=== PATIENT | male | born 1955 | race Caucasian/White ===

== ENCOUNTER → 2021-04-11 | Outpatient (CLI) | payer OTHER ==
[~2021-04-11] MED LIST: ASPI81TA45 PO; CHOL10003 PO; DULO30CA2 PO; METO25TA35 PO; MULT-449 PO; OMEP20TA62 PO; PRAZ1CAP2 PO; SIMV20TA19 PO
[2021-04-11 09:51] LABS: BASOPHILS % (AUTO) 1 % (0-1); EOSINOPHILS % (AUTO) 5 % (1-7); LYMPHOCYTES % (AUTO) 27 % (22-44); MEAN CORPUSCULAR HEMOGLOBIN 32.3 pg (27.5-34.5); MEAN CORPUSCULAR HGB CONC 33.2 g/dL (33.2-36.2); MEAN PLATELET VOLUME 7.3 fL (7.4-10.4); MONOCYTES % (AUTO) 11 % (2-9); NEUTROPHILS % (AUTO) 57 % (42-75); PLATELET COUNT 225 x10^3/uL (130-400); RED BLOOD COUNT 4.72 x10^6/uL (4.38-5.82); RED CELL DISTRIBUTION WIDTH 14.1 % (9.4-14.8)
[2021-04-11 10:04] LABS: ANION GAP 4 mmol/L (5-15); CHLORIDE 105 mmol/L (98-107); INTERNATIONAL NORMALIZED RATIO 1.06 (0.93-1.1); PROTHROMBIN TIME 11.3 Seconds (9.6-11.5)
[2021-04-11 10:07] LABS: ALANINE AMINOTRANSFERASE 31 U/L (12-78); ALKALINE PHOSPHATASE 77 U/L (45-117); BILIRUBIN,TOTAL 0.6 mg/dL (0.2-1.0); CREATININE 1.03 mg/dL (0.7-1.3); TOTAL PROTEIN 7.7 g/dL (6.4-8.2)
[2021-04-11 10:20] LABS: MD NO
[2021-04-11 10:26] LABS: MICROSCOPIC NOT IND
== END | disposition home or self-care (01) ==
LOC: STAR 08:41
PROVIDERS: ATTEND Neurological Surgery
DX: Z01.810 Encounter for preprocedural cardiovascular examination (principal); Z01.811 Encounter for preprocedural respiratory examination; Z01.812 Encounter for preprocedural laboratory examination; M47.896 Other spondylosis, lumbar region; M48.061 Spinal stenosis, lumbar region without neurogenic claudication; R94.31 Abnormal electrocardiogram [ECG] [EKG]; R79.1 Abnormal coagulation profile; R82.90 Unspecified abnormal findings in urine; Z20.822 Contact with and (suspected) exposure to COVID-19
CPT/HCPCS: 36415; 71046; 80053; 81003; 85025; 85610; 85730; 93005; U0003; U0005

== ENCOUNTER 2021-04-17 06:30 | Inpatient (IN) | payer OTHER ==
[~2021-04-17] VITALS: Ht 172.7 cm; Wt 85.0 kg
[~2021-04-17 06:30] MED LIST changes: +BACITRACIN 50,000 UNIT ONE; +BUPIVACAINE/PF 0.5% ONE; +VANCOMYCIN 1,000 MG ONE
[2021-04-17 07:07] VITALS: BP 117/75
[2021-04-17] MEDS ORDERED: FENTANYL PF 250 MCG/5ML ONE (07:13)
[2021-04-17] MEDS ORDERED: MIDAZOLAM 1 MG/ML, 2ML ONE (07:13)
[2021-04-17] MEDS ORDERED: PROPOFOL 10 MG/ML, 20ML ONE (07:18)
[2021-04-17] MEDS ORDERED: ROCURONIUM 10MG/ML,5ML ONE (07:18)
[2021-04-17] MEDS ORDERED: GLYCOPYRROLATE 0.2MG/1ML, 5ML ONE (07:18)
[2021-04-17] MEDS ORDERED: NEOSTIGMINE 1 MG/ML, 10ML ONE (07:18)
[2021-04-17] MEDS ORDERED: CEFAZOLIN 1,000 MG ONE (07:18)
[2021-04-17] MEDS ORDERED: CHLORHEXIDINE 15 ML UDC PO ONE (07:30)
[2021-04-17] MEDS ORDERED: LACTATED RINGERS 1,000 ML IV SCH (07:30)
[2021-04-17] MEDS ORDERED: hydrALAzine 20 MG/ML, 1ML IV PRN (09:00)
[2021-04-17] MEDS ORDERED: FENTANYL PF 100 MCG/2ML IV PRN (09:00)
[2021-04-17] MEDS ORDERED: morphine SULFATE 10 MG/ML, 1ML IVPush PRN (09:00)
[2021-04-17] MEDS ORDERED: MEPERIDINE/PF 25MG/0.5ML IVPush PRN (09:00)
[2021-04-17] MEDS ORDERED: ONDANSETRON 2MG/ML, 2ML IVPush PRN (09:00)
[2021-04-17] MEDS ORDERED: OXYcodone 5 MG/5 ML ORAL.SOL UDC PO PRN (09:00)
[2021-04-17] MEDS ORDERED: LABETALOL 5MG/ML, 20ML IV PRN (09:00)
[2021-04-17] MEDS ORDERED: ACETAMINOPHEN 325 MG TABLET PO PRN (09:00)
[2021-04-17] MEDS ORDERED: PHENYLEPHRINE 10 MG/ML ONE (09:11)
[2021-04-17] MEDS ORDERED: FENTANYL PF 100 MCG/2ML ONE ×2 (11:06→11:36)
[2021-04-17] MEDS ORDERED: VANCOMYCIN 1,000 MG ONE (11:57)
[2021-04-17] MEDS ORDERED: NALOXONE 0.4 MG/ML, 1ML ONE (12:17)
[2021-04-17] MEDS ORDERED: PHARMACY MAY ADJ FOR RENAL FX MC PRN (12:30)
[2021-04-17] MEDS ORDERED: LABETALOL 5MG/ML, 20ML IVPush PRN (12:30)
[2021-04-17] MEDS ORDERED: DIPHENHYDRAMINE 50 MG/ML, 1ML IM PRN (12:30)
[2021-04-17] MEDS ORDERED: PROMETHAZINE 25 MG/ML, 1ML IM PRN (12:30)
[2021-04-17] MEDS ORDERED: DIPHENHYDRAMINE 50 MG CAPSULE PO PRN (12:30)
[2021-04-17] MEDS ORDERED: DIPHENHYDRAMINE 50 MG/ML, 1ML IVPush PRN (12:30)
[2021-04-17] MEDS: D5%-0.9% NACL+KCL 20MEQ 1,000 ML IV SCH (12:30)
[2021-04-17] MEDS ORDERED: MAGNESIUM HYDROXIDE 8%, 30ML UDC PO PRN (12:30)
[2021-04-17] MEDS ORDERED: OXYcodone IR 5MG TABLET PO PRN (12:30)
[2021-04-17] MEDS ORDERED: METHOCARBAMOL 750 MG TABLET PO PRN (12:30)
[2021-04-17] MEDS ORDERED: SENNA/DOCUSATE TABLET PO PRN (12:30)
[2021-04-17] MEDS ORDERED: BISACODYL 10 MG SUPP PR PRN (12:30)
[2021-04-17] MEDS ORDERED: HYDROmorphone 1 MG/ML, 1ML INJ ONE (12:33)
[2021-04-17] MEDS: HYDROmorphone 1 MG/ML, 1ML INJ IVPush PRN ×3 (12:35→13:39)
[2021-04-17] MEDS ORDERED: HYDROcodone/APAP 7.5-325MG/15ML UDC ONE (13:03)
[2021-04-17] MEDS ORDERED: HYDROcodone/APAP 7.5-325MG/15ML UDC PO PRN (13:30)
[2021-04-17] MEDS: morphine SULFATE 10 MG/ML, 1ML IVPush PRN ×2 (16:10→20:59)
[2021-04-17] MEDS: CEFAZOLIN PMX 1GM/50ML 50 ML IVPB SCH (17:52)
[2021-04-17] MEDS: HYDROcodone/APAP 5/325 TABLET PO PRN ×2 (18:07→23:35)
[2021-04-17] MEDS: ONDANSETRON 2MG/ML, 2ML IVPush PRN (18:07)
[2021-04-17 19:35] VITALS: BP 158/91
[2021-04-17] MEDS: OMEPRAZOLE 20 MG CAPSULE.DR PO SCH (20:21)
[2021-04-17] MEDS: SIMVASTATIN 20 MG TABLET PO SCH (20:21)
[2021-04-17] MEDS: METOPROLOL TARTRATE 25 MG TAB PO SCH (20:21)
[2021-04-17] MEDS: PRAZOSIN 1 MG CAPSULE PO SCH (20:23)
[2021-04-18] MEDS: morphine SULFATE 10 MG/ML, 1ML IVPush PRN ×5 (00:06→06:57)
[2021-04-18] MEDS: D5%-0.9% NACL+KCL 20MEQ 1,000 ML IV SCH ×3 (00:06→17:58)
[2021-04-18 00:11] VITALS: BP 126/78
[2021-04-18] MEDS: CEFAZOLIN PMX 1GM/50ML 50 ML IVPB SCH ×2 (01:17→21:42)
[2021-04-18] MEDS: HYDROcodone/APAP 5/325 TABLET PO PRN ×4 (03:36→23:51)
[2021-04-18] MEDS: ONDANSETRON 2MG/ML, 2ML IVPush PRN (03:49)
[2021-04-18 03:51] VITALS: BP 147/76
[2021-04-18 05:04] LABS: BASOPHILS % (AUTO) 0 % (0-1); EOSINOPHILS % (AUTO) 0 % (1-7); LYMPHOCYTES % (AUTO) 10 % (22-44); MEAN CORPUSCULAR HEMOGLOBIN 31.8 pg (27.5-34.5); MEAN PLATELET VOLUME 7.6 fL (7.4-10.4); MONOCYTES % (AUTO) 10 % (2-9); NEUTROPHILS % (AUTO) 80 % (42-75); PLATELET COUNT 187 x10^3/uL (130-400); RED BLOOD COUNT 4.17 x10^6/uL (4.38-5.82); RED CELL DISTRIBUTION WIDTH 14.4 % (9.4-14.8)
[2021-04-18 05:05] LABS: MD NO
[2021-04-18 05:15] LABS: CHLORIDE 104 mmol/L (98-107)
[2021-04-18 05:21] LABS: ANION GAP 4 mmol/L (5-15); CREATININE 0.78 mg/dL (0.7-1.3)
[2021-04-18 06:22] VITALS: BP 124/73
[2021-04-18] MEDS ORDERED: VANCOMYCIN 1,000 MG ONE (06:28)
[2021-04-18] MEDS ORDERED: BUPIVACAINE/PF 0.5% ONE (06:28)
[2021-04-18] MEDS ORDERED: EPINEPHRINE 1 MG/ML, 1ML ONE (06:28)
[2021-04-18] MEDS ORDERED: BACITRACIN 50,000 UNIT ONE (06:28)
[2021-04-18] MEDS: METOPROLOL TARTRATE 25 MG TAB PO SCH ×2 (08:02→21:42)
[2021-04-18] MEDS: DULOXETINE 30 MG CAPSULE.DR PO SCH (09:00)
[2021-04-18] MEDS: OMEPRAZOLE 20 MG CAPSULE.DR PO SCH ×2 (09:00→21:41)
[2021-04-18] MEDS ORDERED: CHLORHEXIDINE 15 ML UDC ONE (11:30)
[2021-04-18] MEDS ORDERED: CHLORHEXIDINE 15 ML UDC PO ONE (11:30)
[2021-04-18] MEDS ORDERED: FENTANYL PF 250 MCG/5ML ONE (11:42)
[2021-04-18] MEDS ORDERED: MIDAZOLAM 1 MG/ML, 2ML ONE (11:42)
[2021-04-18] MEDS ORDERED: EPHEDRINE 50 MG/ML, 1ML ONE (12:49)
[2021-04-18] MEDS ORDERED: PHENYLEPHRINE 10 MG/ML ONE (12:49)
[2021-04-18] MEDS ORDERED: VANCOMYCIN 1,000 MG IM ONE (13:27)
[2021-04-18] MEDS ORDERED: NEOSTIGMINE 1 MG/ML, 10ML ONE (14:59)
[2021-04-18] MEDS ORDERED: DEXAMETHASONE 4 MG/ML, 1ML ONE (14:59)
[2021-04-18] MEDS ORDERED: ONDANSETRON 2MG/ML, 2ML ONE (14:59)
[2021-04-18] MEDS ORDERED: SUCCINYLCHOLINE 20 MG/ML, 10ML ONE (14:59)
[2021-04-18] MEDS ORDERED: GLYCOPYRROLATE 0.2MG/1ML, 5ML ONE (14:59)
[2021-04-18] MEDS ORDERED: PROPOFOL 10 MG/ML, 20ML ONE (14:59)
[2021-04-18] MEDS ORDERED: ROCURONIUM 10MG/ML,5ML ONE (14:59)
[2021-04-18] MEDS ORDERED: CEFAZOLIN 1,000 MG ONE (14:59)
[2021-04-18] MEDS ORDERED: DIPHENHYDRAMINE 50 MG/ML, 1ML IVPush PRN (16:00)
[2021-04-18] MEDS ORDERED: LABETALOL 5MG/ML, 20ML IV PRN (16:00)
[2021-04-18] MEDS ORDERED: DIPHENHYDRAMINE 50 MG/ML, 1ML IM PRN (16:00)
[2021-04-18] MEDS ORDERED: BISACODYL 10 MG SUPP PR PRN (16:00)
[2021-04-18] MEDS ORDERED: DIAZEPAM 5 MG/ML, 2ML IVPush PRN (16:00)
[2021-04-18] MEDS ORDERED: MEPERIDINE/PF 25MG/0.5ML IVPush PRN (16:00)
[2021-04-18] MEDS ORDERED: ACETAMINOPHEN 325 MG TABLET PO PRN ×2 (16:00)
[2021-04-18] MEDS ORDERED: PROMETHAZINE 25 MG/ML, 1ML IV PRN (16:00)
[2021-04-18] MEDS ORDERED: PROMETHAZINE 25 MG/ML, 1ML IM PRN (16:00)
[2021-04-18] MEDS ORDERED: HYDROmorphone 2 MG/ML, 1ML IVPush PRN (16:00)
[2021-04-18] MEDS ORDERED: hydrALAzine 20 MG/ML, 1ML IV PRN (16:00)
[2021-04-18] MEDS ORDERED: OXYcodone 5 MG/5 ML ORAL.SOL UDC PO PRN (16:00)
[2021-04-18] MEDS ORDERED: KETOROLAC 30 MG/1 ML IV PRN (16:00)
[2021-04-18] MEDS ORDERED: ALBUTEROL SULFATE 2.5 MG/3 ML NPPB PRN (16:00)
[2021-04-18] MEDS ORDERED: FENTANYL PF 100 MCG/2ML IV PRN (16:00)
[2021-04-18] MEDS ORDERED: DIPHENHYDRAMINE 50 MG CAPSULE PO PRN (16:00)
[2021-04-18] MEDS ORDERED: HYDROmorphone 1 MG/ML, 1ML INJ IVPush PRN (16:00)
[2021-04-18] MEDS ORDERED: PHARMACY MAY ADJ FOR RENAL FX MC PRN (16:00)
[2021-04-18] MEDS ORDERED: LABETALOL 5MG/ML, 20ML IVPush PRN (16:00)
[2021-04-18] MEDS ORDERED: KETOROLAC 30 MG/1 ML IVPush ONE (16:00)
[2021-04-18] MEDS ORDERED: METHOCARBAMOL 1,000 MG in DEXTROSE 5% 100 ML IV ONE (16:30)
[2021-04-18] MEDS ORDERED: KETOROLAC 30 MG/1 ML ONE (16:38)
[2021-04-18] MEDS: NS + 20MEQ KCL 1,000 ML IV SCH (17:57)
[2021-04-18 18:41] VITALS: BP 125/79
[2021-04-18] MEDS: PRAZOSIN 1 MG CAPSULE PO SCH (21:42)
[2021-04-18] MEDS: SIMVASTATIN 20 MG TABLET PO SCH (21:42)
[2021-04-19] VITALS (7 sets, daily range): BP systolic 98–118; BP diastolic 58–73
[2021-04-19] MEDS: METHOCARBAMOL 750 MG TABLET PO SCH ×3 (01:17→16:47)
[2021-04-19] MEDS: D5%-0.9% NACL+KCL 20MEQ 1,000 ML IV SCH (04:30)
[2021-04-19 05:04] LABS: BASOPHILS % (AUTO) 0 % (0-1); EOSINOPHILS % (AUTO) 0 % (1-7); LYMPHOCYTES % (AUTO) 13 % (22-44); MEAN CORPUSCULAR HEMOGLOBIN 33.1 pg (27.5-34.5); MEAN CORPUSCULAR HGB CONC 34.1 g/dL (33.2-36.2); MEAN PLATELET VOLUME 7.3 fL (7.4-10.4); MONOCYTES % (AUTO) 12 % (2-9); NEUTROPHILS % (AUTO) 75 % (42-75); PLATELET COUNT 172 x10^3/uL (130-400); RED BLOOD COUNT 3.36 x10^6/uL (4.38-5.82); RED CELL DISTRIBUTION WIDTH 14.4 % (9.4-14.8)
[2021-04-19 05:05] LABS: MD NO
[2021-04-19 05:25] LABS: ALBUMIN 2.6 g/dL (3.4-5.0); ANION GAP 5 mmol/L (5-15); CALCIUM 7.7 mg/dL (8.5-10.1); CHLORIDE 106 mmol/L (98-107); CREATININE 0.67 mg/dL (0.7-1.3)
[2021-04-19] MEDS: CEFAZOLIN PMX 1GM/50ML 50 ML IVPB SCH (05:56)
[2021-04-19] MEDS: HYDROcodone/APAP 5/325 TABLET PO PRN ×3 (05:56→15:34)
[2021-04-19] MEDS: ONDANSETRON 2MG/ML, 2ML IVPush PRN ×3 (06:08→23:28)
[2021-04-19] MEDS: OMEPRAZOLE 20 MG CAPSULE.DR PO SCH ×2 (09:00→20:09)
[2021-04-19] MEDS: ENOXAPARIN 40 MG/0.4 ML SQ SCH (09:00)
[2021-04-19] MEDS: DULOXETINE 30 MG CAPSULE.DR PO SCH (09:00)
[2021-04-19] MEDS: METOPROLOL TARTRATE 25 MG TAB PO SCH ×2 (09:00→20:13)
[2021-04-19] MEDS: morphine SULFATE 10 MG/ML, 1ML IVPush PRN ×2 (09:08→23:44)
[2021-04-19] MEDS ORDERED: OMNIPAQUE 350 MG/ML, 150 ML BOTTLE ONE (09:45)
[2021-04-19] MEDS: NS + 20MEQ KCL 1,000 ML IV SCH (10:33)
[2021-04-19] MEDS: MAGNESIUM HYDROXIDE 8%, 30ML UDC PO PRN (16:53)
[2021-04-19] MEDS ORDERED: LACTATED RINGERS 500 ML IVBOLUS ONE (20:00)
[2021-04-19] MEDS: HYDROcodone/APAP 10/325 MG TABLET PO PRN (20:09)
[2021-04-19] MEDS: SIMVASTATIN 20 MG TABLET PO SCH (20:09)
[2021-04-19] MEDS: PRAZOSIN 1 MG CAPSULE PO SCH (20:13)
[2021-04-19] MEDS: SENNA/DOCUSATE TABLET PO PRN (23:29)
[2021-04-20 01:01] VITALS: BP 108/68
[2021-04-20] MEDS: HYDROcodone/APAP 10/325 MG TABLET PO PRN ×4 (03:19→17:30)
[2021-04-20] MEDS: MAGNESIUM HYDROXIDE 8%, 30ML UDC PO PRN (03:29)
[2021-04-20 05:17] LABS: BASOPHILS % (AUTO) 0 % (0-1); EOSINOPHILS % (AUTO) 1 % (1-7); LYMPHOCYTES % (AUTO) 8 % (22-44); MEAN CORPUSCULAR HEMOGLOBIN 32.7 pg (27.5-34.5); MEAN CORPUSCULAR HGB CONC 33.9 g/dL (33.2-36.2); MEAN PLATELET VOLUME 7.1 fL (7.4-10.4); MONOCYTES % (AUTO) 12 % (2-9); NEUTROPHILS % (AUTO) 79 % (42-75); PLATELET COUNT 177 x10^3/uL (130-400); RED BLOOD COUNT 3.36 x10^6/uL (4.38-5.82); RED CELL DISTRIBUTION WIDTH 14.3 % (9.4-14.8)
[2021-04-20 05:24] LABS: MD NO
[2021-04-20 06:17] VITALS: BP 133/79
[2021-04-20] MEDS ORDERED: METOCLOPRAMIDE 5 MG/ML, 2ML IVPush PRN (08:00)
[2021-04-20] MEDS: DULOXETINE 30 MG CAPSULE.DR PO SCH (08:20)
[2021-04-20] MEDS: OMEPRAZOLE 20 MG CAPSULE.DR PO SCH ×2 (08:20→20:33)
[2021-04-20] MEDS: METOCLOPRAMIDE 5 MG/ML, 2ML IVPush SCH ×3 (08:22→20:34)
[2021-04-20] MEDS: METOPROLOL TARTRATE 25 MG TAB PO SCH ×2 (08:22→20:31)
[2021-04-20] MEDS: ENOXAPARIN 40 MG/0.4 ML SQ SCH (09:00)
[2021-04-20] MEDS: NS + 20MEQ KCL 1,000 ML IV SCH (10:32)
[2021-04-20 14:20] VITALS: BP 115/74
[2021-04-20 20:11] VITALS: BP 116/73
[2021-04-20 20:30] VITALS: BP 115/71
[2021-04-20] MEDS: PRAZOSIN 1 MG CAPSULE PO SCH (20:32)
[2021-04-20] MEDS: SIMVASTATIN 20 MG TABLET PO SCH (20:33)
[2021-04-21] MEDS: HYDROcodone/APAP 10/325 MG TABLET PO PRN ×2 (00:11→20:08)
[2021-04-21] MEDS: NS + 20MEQ KCL 1,000 ML IV SCH ×2 (00:12→12:38)
[2021-04-21 01:17] VITALS: BP 126/76
[2021-04-21] MEDS: METOCLOPRAMIDE 5 MG/ML, 2ML IVPush SCH ×4 (02:34→20:08)
[2021-04-21 05:38] LABS: BASOPHILS % (AUTO) 0 % (0-1); EOSINOPHILS % (AUTO) 2 % (1-7); LYMPHOCYTES % (AUTO) 10 % (22-44); MEAN CORPUSCULAR HEMOGLOBIN 32.9 pg (27.5-34.5); MEAN CORPUSCULAR HGB CONC 34.1 g/dL (33.2-36.2); MEAN PLATELET VOLUME 7.3 fL (7.4-10.4); MONOCYTES % (AUTO) 12 % (2-9); NEUTROPHILS % (AUTO) 76 % (42-75); PLATELET COUNT 184 x10^3/uL (130-400); RED BLOOD COUNT 3.14 x10^6/uL (4.38-5.82); RED CELL DISTRIBUTION WIDTH 14.1 % (9.4-14.8)
[2021-04-21 05:39] LABS: MD NO
[2021-04-21 07:07] VITALS: BP 117/69
[2021-04-21] MEDS: METOPROLOL TARTRATE 25 MG TAB PO SCH ×2 (07:23→20:08)
[2021-04-21] MEDS: SENNA/DOCUSATE TABLET PO PRN (08:23)
[2021-04-21] MEDS: MAGNESIUM HYDROXIDE 8%, 30ML UDC PO PRN (08:23)
[2021-04-21] MEDS: ENOXAPARIN 40 MG/0.4 ML SQ SCH (08:25)
[2021-04-21] MEDS: OMEPRAZOLE 20 MG CAPSULE.DR PO SCH ×2 (08:25→20:08)
[2021-04-21] MEDS: DULOXETINE 30 MG CAPSULE.DR PO SCH (08:25)
[2021-04-21] MEDS: HYDROcodone/APAP 5/325 TABLET PO PRN (08:39)
[2021-04-21 10:40] VITALS: BP 96/58
[2021-04-21 10:43] VITALS: BP 96/69
[2021-04-21 13:25] VITALS: BP 114/75
[2021-04-21 19:50] VITALS: BP 113/65
[2021-04-21] MEDS: SIMVASTATIN 20 MG TABLET PO SCH (20:08)
[2021-04-21] MEDS: PRAZOSIN 1 MG CAPSULE PO SCH (20:08)
[2021-04-22 00:46] VITALS: BP 113/72
[2021-04-22] MEDS: HYDROcodone/APAP 10/325 MG TABLET PO PRN ×5 (01:10→20:43)
[2021-04-22] MEDS: METOCLOPRAMIDE 5 MG/ML, 2ML IVPush SCH ×4 (02:31→20:40)
[2021-04-22] MEDS: NS + 20MEQ KCL 1,000 ML IV SCH ×2 (03:46→14:43)
[2021-04-22 05:14] LABS: BASOPHILS % (AUTO) 1 % (0-1); EOSINOPHILS % (AUTO) 4 % (1-7); LYMPHOCYTES % (AUTO) 15 % (22-44); MEAN CORPUSCULAR HEMOGLOBIN 32.9 pg (27.5-34.5); MEAN CORPUSCULAR HGB CONC 33.8 g/dL (33.2-36.2); MONOCYTES % (AUTO) 11 % (2-9); NEUTROPHILS % (AUTO) 69 % (42-75); PLATELET COUNT 209 x10^3/uL (130-400); RED BLOOD COUNT 3.08 x10^6/uL (4.38-5.82); RED CELL DISTRIBUTION WIDTH 13.9 % (9.4-14.8)
[2021-04-22 05:15] LABS: MD NO
[2021-04-22 07:29] VITALS: BP 101/66
[2021-04-22] MEDS ORDERED: MAGNESIUM CITRATE 300ML ORAL SOL ONE (08:26)
[2021-04-22] MEDS: DULOXETINE 30 MG CAPSULE.DR PO SCH (08:31)
[2021-04-22] MEDS: SENNA/DOCUSATE TABLET PO PRN (08:31)
[2021-04-22] MEDS: METOPROLOL TARTRATE 25 MG TAB PO SCH ×2 (08:31→20:44)
[2021-04-22] MEDS: OMEPRAZOLE 20 MG CAPSULE.DR PO SCH ×2 (08:31→20:40)
[2021-04-22] MEDS: ENOXAPARIN 40 MG/0.4 ML SQ SCH (08:32)
[2021-04-22] MEDS ORDERED: MAGNESIUM CITRATE 300ML ORAL SOL PO ONE (09:00)
[2021-04-22 12:15] VITALS: BP 107/69
[2021-04-22 12:20] VITALS: BP 115/73
[2021-04-22 19:02] VITALS: BP 110/75
[2021-04-22] MEDS: SIMVASTATIN 20 MG TABLET PO SCH (20:41)
[2021-04-22] MEDS: PRAZOSIN 1 MG CAPSULE PO SCH (20:44)
[2021-04-23] MEDS: HYDROcodone/APAP 10/325 MG TABLET PO PRN ×4 (00:31→17:56)
[2021-04-23] MEDS: METHOCARBAMOL 750 MG TABLET PO PRN ×3 (00:43→20:11)
[2021-04-23 01:51] VITALS: BP 111/70
[2021-04-23] MEDS: METOCLOPRAMIDE 5 MG/ML, 2ML IVPush SCH ×4 (02:00→20:08)
[2021-04-23] MEDS: NS + 20MEQ KCL 1,000 ML IV SCH ×2 (04:14→17:56)
[2021-04-23 04:53] LABS: BASOPHILS % (AUTO) 1 % (0-1); EOSINOPHILS % (AUTO) 4 % (1-7); LYMPHOCYTES % (AUTO) 12 % (22-44); MEAN CORPUSCULAR HEMOGLOBIN 32.7 pg (27.5-34.5); MEAN PLATELET VOLUME 6.9 fL (7.4-10.4); MONOCYTES % (AUTO) 11 % (2-9); NEUTROPHILS % (AUTO) 71 % (42-75); PLATELET COUNT 235 x10^3/uL (130-400); RED BLOOD COUNT 2.93 x10^6/uL (4.38-5.82)
[2021-04-23 05:46] LABS: MD SCAN
[2021-04-23 07:20] VITALS: BP 119/73
[2021-04-23 08:20] VITALS: BP 113/75
[2021-04-23] MEDS: ENOXAPARIN 40 MG/0.4 ML SQ SCH (08:28)
[2021-04-23] MEDS: DULOXETINE 30 MG CAPSULE.DR PO SCH (08:28)
[2021-04-23] MEDS: OMEPRAZOLE 20 MG CAPSULE.DR PO SCH ×2 (08:29→20:11)
[2021-04-23] MEDS: METOPROLOL TARTRATE 25 MG TAB PO SCH ×2 (08:29→20:08)
[2021-04-23 19:00] VITALS: BP 119/76
[2021-04-23] MEDS: PRAZOSIN 1 MG CAPSULE PO SCH (20:10)
[2021-04-23] MEDS: SIMVASTATIN 20 MG TABLET PO SCH (20:21)
[2021-04-24 00:36] VITALS: BP 125/77
[2021-04-24] MEDS: HYDROcodone/APAP 10/325 MG TABLET PO PRN ×5 (01:49→20:48)
[2021-04-24] MEDS: METOCLOPRAMIDE 5 MG/ML, 2ML IVPush SCH ×4 (01:53→20:48)
[2021-04-24 04:45] LABS: BASOPHILS % (AUTO) 1 % (0-1); EOSINOPHILS % (AUTO) 6 % (1-7); LYMPHOCYTES % (AUTO) 14 % (22-44); MEAN CORPUSCULAR HEMOGLOBIN 32.8 pg (27.5-34.5); MEAN CORPUSCULAR HGB CONC 34.1 g/dL (33.2-36.2); MEAN PLATELET VOLUME 6.7 fL (7.4-10.4); MONOCYTES % (AUTO) 11 % (2-9); NEUTROPHILS % (AUTO) 68 % (42-75); PLATELET COUNT 288 x10^3/uL (130-400); RED BLOOD COUNT 3.15 x10^6/uL (4.38-5.82); RED CELL DISTRIBUTION WIDTH 13.8 % (9.4-14.8)
[2021-04-24 04:46] LABS: MD NO
[2021-04-24 07:40] VITALS: BP 131/83
[2021-04-24] MEDS: ENOXAPARIN 40 MG/0.4 ML SQ SCH (07:52)
[2021-04-24] MEDS: METOPROLOL TARTRATE 25 MG TAB PO SCH ×2 (07:52→20:48)
[2021-04-24] MEDS: DULOXETINE 30 MG CAPSULE.DR PO SCH (07:52)
[2021-04-24] MEDS: METHOCARBAMOL 750 MG TABLET PO PRN (07:52)
[2021-04-24] MEDS: OMEPRAZOLE 20 MG CAPSULE.DR PO SCH ×2 (07:52→20:48)
[2021-04-24] MEDS: NS + 20MEQ KCL 1,000 ML IV SCH ×2 (08:00→21:20)
[2021-04-24 12:35] VITALS: BP 102/69
[2021-04-24 18:31] VITALS: BP 108/69
[2021-04-24] MEDS: SIMVASTATIN 20 MG TABLET PO SCH (20:48)
[2021-04-24 20:49] VITALS: BP 129/77
[2021-04-24] MEDS: PRAZOSIN 1 MG CAPSULE PO SCH (20:49)
[2021-04-25 01:19] VITALS: BP 93/57
[2021-04-25] MEDS: METOCLOPRAMIDE 5 MG/ML, 2ML IVPush SCH ×3 (02:30→14:30)
[2021-04-25 04:54] LABS: MEAN CORPUSCULAR HEMOGLOBIN 32.3 pg (27.5-34.5); MEAN CORPUSCULAR HGB CONC 33.8 g/dL (33.2-36.2); MEAN PLATELET VOLUME 6.6 fL (7.4-10.4); PLATELET COUNT 326 x10^3/uL (130-400); RED BLOOD COUNT 3.21 x10^6/uL (4.38-5.82); RED CELL DISTRIBUTION WIDTH 14.6 % (9.4-14.8)
[2021-04-25 05:24] LABS: MD YES
[2021-04-25 05:26] LABS: BAND#(MANUAL) 0.22 x10^3/uL; BANDS%(MANUAL) 3 % (0-7); EOS#(MANUAL) 0.43 x10^3/uL (0.0-0.4); EOS% (MANUAL) 6 % (1-7); LYMPH#(MANUAL) 1.22 x10^3/uL (1-3.4); LYMPHS% (MANUAL) 17 % (22-44); METAMYELOCYTES# (MANUAL) 0.29 x10^3/uL (0-0); METAMYELOCYTES% (MANUAL) 4 % (0-1); MONOS#(MANUAL) 0.94 x10^3/uL (0.3-2.7); MONOS% (MANUAL) 13 % (2-9); SEGS% (MANUAL) 57 % (42-75)
[2021-04-25 05:27] LABS: <PLATELET ESTIMATE> ADEQUATE; <PLT MORPHOLOGY> NORMAL PLT MORPH; POLYCHROMASIA 1+
[2021-04-25] MEDS: HYDROcodone/APAP 10/325 MG TABLET PO PRN ×3 (05:41→14:37)
[2021-04-25] MEDS ORDERED: METH-640 PO (07:40)
[2021-04-25] MEDS ORDERED: HYDR1TAB53 PO ×2 (07:40→07:46)
[2021-04-25 08:09] VITALS: BP 92/56
[2021-04-25] MEDS: OMEPRAZOLE 20 MG CAPSULE.DR PO SCH (09:20)
[2021-04-25] MEDS: DULOXETINE 30 MG CAPSULE.DR PO SCH (09:20)
[2021-04-25] MEDS: ENOXAPARIN 40 MG/0.4 ML SQ SCH (09:21)
[2021-04-25] MEDS: METOPROLOL TARTRATE 25 MG TAB PO SCH (09:21)
[2021-04-25] MEDS: NS + 20MEQ KCL 1,000 ML IV SCH (10:40)
[2021-04-25 12:08] VITALS: BP 107/72
== END 2021-04-25 15:00 | disposition home or self-care (01) | DRG 454 ==
LOC: ORIP 06:30 → 4NE 14:00 → DCLOUNGE 04-25 14:51
PROVIDERS: ADMIT Neurological Surgery; ATTEND Neurological Surgery
PROC: 0SB20ZZ Excision of Lumbar Vertebral Disc, Open Approach (ICD-10-PCS; 2021-04-17)
PROC: 4A11X4G Monitoring of Peripheral Nervous Electrical Activity, Intraoperative, External Approach (ICD-10-PCS; 2021-04-17)
PROC: 0SG10A0 Fusion of 2 or more Lumbar Vertebral Joints with Interbody Fusion Device, Anterior Approach, Anterior Column, Open Approach (ICD-10-PCS; principal; 2021-04-17 09:00)
PROC: 0SG1071 Fusion of 2 or more Lumbar Vertebral Joints with Autologous Tissue Substitute, Posterior Approach, Posterior Column, Open Approach (ICD-10-PCS; 2021-04-18)
PROC: 01NB0ZZ Release Lumbar Nerve, Open Approach (ICD-10-PCS; 2021-04-18)
PROC: 4A11X4G Monitoring of Peripheral Nervous Electrical Activity, Intraoperative, External Approach (ICD-10-PCS; 2021-04-18)
DX: M48.061 Spinal stenosis, lumbar region without neurogenic claudication (principal); K56.7 Ileus, unspecified; M47.896 Other spondylosis, lumbar region; M54.5 Low back pain; Z88.8 Allergy status to other drugs, medicaments and biological substances; I95.1 Orthostatic hypotension; M41.80 Other forms of scoliosis, site unspecified; M43.16 Spondylolisthesis, lumbar region; M51.16 Intervertebral disc disorders with radiculopathy, lumbar region
CPT/HCPCS: 36415; 72100; S0020; 72131; 74178; 80048; 82040; 85025; 86850; 86900; C1713; G0378; J0171; J0690; J1100; J1170; J1650; J2250; J2405; J2704; J2710; J3010; J3370; J3480; J7120; Q9967; C1762; C1769; C1889; J0330; J2270; J2370; J2765; J2800